=== PATIENT | male | born 1990 | race Two or more races ===

== ENCOUNTER 2021-06-15 11:22 | Outpatient (REF) | payer OTHER, SELFPAY ==
--- NOTE | ~2021-06-15 | XR_ITS ---
EXAMINATION: XR CERVICAL SPINE CLINICAL INFORMATION: Cervicalgia. COMPARISON: Cervical spine radiographs dated 06/11/2013. TECHNIQUE: 3 views of the cervical spine were obtained. FINDINGS: Straightening of the normal cervical lordosis, which may be positional or related to muscular spasm. No acute fracture or subluxation. No loss of vertebral body height. Loss of intervertebral disc height with tiny anterior endplate osteophytes at C4-C5 and C5-C6. No lytic or blastic osseous lesion. Normal atlantoaxial alignment. Unremarkable prevertebral soft tissues. XR/XR cervical spine 3V IMPRESSION: Straightening of the normal cervical lordosis, which may be positional or related to muscular spasm. Mild degenerative disc disease at C4-C5 and C5-C6, new when compared to the prior examination.
[2021-06-15 12:08] LABS: MANUAL DIFF FLAG NO
[2021-06-15 12:12] LABS: Basophils Percent Auto 0.5 % (0-2); Eosinophils Absolute Auto 0.3 X10*3/uL (0.0-0.4); Eosinophils Percent Auto 5.9 % (0-4); Hematocrit 46.7 % (42-52); Hemoglobin 15.3 g/dl (14.0-18.0); Imm Gran Abs Auto 0.03 X10*3/uL (0.00-0.03); Imm Gran Pct Auto 0.5 % (0.0-0.4); Lymphocytes Absolute Auto 1.6 X10*3/uL (1.2-4.9); Lymphocytes Percent Auto 28.1 % (20-40); Mean Corpuscular HGB Conc 32.8 g/dl (31.0-36.0); Mean Corpuscular Hemoglobin 29.4 pg (27.0-33.0); Mean Corpuscular Volume 89.6 fL (80-98); Mean Platelet Volume 10.4 fL (9.4-12.4); Monocytes Absolute Auto 0.6 X10*3/uL (0.1-1.2); Monocytes Percent Auto 10.2 % (2-11); Neutrophils Absolute Auto 3.2 X10*3/uL (2.0-8.3); Neutrophils Percent Auto 54.8 % (45-73); Platelet Count 250 X10*3/uL (160-400); Red Blood Count 5.21 X10*6/uL (4.60-5.80); Red Cell Distribution Width 12.3 % (11.0-16.0); White Blood Count 5.8 X10*3/uL (4.8-10.8)
[2021-06-15 12:42] LABS: Alanine Aminotransferase 21 U/L (0-40); Albumin Level 4.5 g/dL (3.5-5.0); Alkaline Phosphatase 61 U/L (39-117); Anion Gap 13 (12-20); Aspartate Amino Transferase 20 U/L (5-37); Bilirubin Total 0.7 mg/dL (0.0-1.0); Blood Urea Nitrogen 14 mg/dL (9-16); Calcium 9.7 mg/dL (8.4-10.2); Carbon Dioxide 29 mmol/L (22-29); Chloride 104 mmol/L (96-108); Cholesterol 181 mg/dL; Estimated Glomerular Filt Rate > 60; Glucose Fasting 85 mg/dL (60-99); HDL Cholesterol 52 mg/dL; LDL Cholesterol Calculated 110 mg/dl; Potassium 4.8 mmol/L (3.3-5.1); Rheumatoid Factor < 15.0 IU/mL (<15.0); Sodium 141 mmol/L (135-145); Total Protein 7.6 g/dL (6.5-8.0); Triglycerides 97 mg/dL
== END 2021-06-15 11:23 | disposition home or self-care (01) ==
LOC: HO.LAB 11:22
PROVIDERS: Absent Provider Nurse Practitioner Family; PCP Internal Medicine; Visit Provider Nurse Practitioner Family
DX: M54.2 Cervicalgia (principal); M19.90 Unspecified osteoarthritis, unspecified site
CPT/HCPCS: 36415; 72040; 80053; 80061; 85025; 86431

== ENCOUNTER 2021-08-22 11:00 | Outpatient (RCR) | payer OTHER, SELFPAY ==
--- NOTE | 2021-07-21 13:47 | MHC.PT.EP ---
[facility] [place] Office [place] Office [place] Office [address] Ja Maxwell [address] [phone] F: [phone] F: [phone] F: [phone] F: [phone] Physical Therapy Plan of Care Date of Evaluation: Date of Surgery: Diagnosis: CERVICALGIA Assessment: 31 YO MALE REF TO PT W APPROX 10 YR H/O NECK PAIN- HE HAS INTERMITTENT RADICULAR SXS LEFT UE AND REPORTS HIS NECK LOCKS UP ON HIM IF HE PERFORMS MORE PHYSICALLY DEMANDING ACTIVITIES. ON XRAY, Pt HAS MILD DDD C4/5 AND C5/6 LEVELS (SEE RESULTS ABOVE IN ASSESSMENT). OBJECTIVE FINDINGS INCLUDE DECR CERV AROM, (+) WEAKNESS IN PARASCAP MM W COMPENSATORY LUMBAR LORDOSIS, INCR TISSUE TENSION IN UT/ CERV PS MM, AND ACROMIAL LEDGE; AND WEAKNESS IN POSTERIOR RC/ SCAP MM. FUNCTIONAL LIMITATIONS INCLUDE DECR MEGHA TO HEAVY WORKOUTS, WRESTLING, PROLONGED SITTING, STANDING, LAYING DOWN, AND GETTING COMFORTABLE OVERALL. Frequency and Duration: The patient will be seen 2 X WK x 5 WKS Short Term Goals: Pt'S CERV PAIN DECR TO 2-3/10 AND Lt UE RADIC SXS DECR BY 75% IN 2 WKS Pt INDEP W SELF- POSTURAL CORRECTION AND BODY MECH W SMUL ADLs IN 2 WKS Pt DEMON PROPER CORE STAB TECHN W EXER AND SIMUL POSTURE/ ADLs IN 1 WK Snf Goals: Pt INDEP W HEP AND SELF-SX MGMT IN 5 WKS Pt'S OVERALL FUNCTIONAL MOBILITY AND FITNESS/ EXERCISE TOLERANCE IMPROVED EVIDENT W IMPROVED NPDI SCORE BY 8-10 POINTS (AT EVAL 23/50) IN 5 WKS Treatment Plan: Modalities to reduce pain, spasms and effusion. Manual therapy to restore motion and function. Therapeutic exercise to improve strength and flexibility. Neuromuscular re-education for posture and balance. Therapeutic activities to return to functional activities of daily living. Electronically signed by: Dafne Noel,PT Please sign and return to therapist. Thank you for your referral.
== END 2021-09-16 15:05 | disposition home or self-care (01) ==
LOC: HO.PT 11:00
PROVIDERS: PCP Internal Medicine; Visit Provider Nurse Practitioner Family
DX: M54.2 Cervicalgia (principal)
CPT/HCPCS: 97012; 97110; 97140; 97161; 97530